=== PATIENT | female | born 1995 | race Caucasian/White ===

== ENCOUNTER 2020-07-19 18:45 | Emergency (ER) | payer OTHER ==
[2020-07-19 18:52] VITALS: TEMP 98.7
[2020-07-19] MEDS ORDERED: DIPH,PERTUS(ACELL)TETVAC-LF 0.5 ML VIAL IM ONE (19:09)
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
[2020-07-19 20:13] VITALS: BP 116/67; PULSE 70; RESP 18
== END 2020-07-19 20:27 | disposition home or self-care (01) ==
LOC: EC 18:45
DX: S01.23XA Puncture wound without foreign body of nose, initial encounter (principal); Z23 Encounter for immunization; V89.2XXA Person injured in unspecified motor-vehicle accident, traffic, initial encounter; Y92.410 Unspecified street and highway as the place of occurrence of the external cause
CPT/HCPCS: 70450; 72125; 90471; 90715; 99284

== ENCOUNTER 2020-08-20 20:21 | Emergency (ER) | payer OTHER ==
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
--- NOTE | 2020-08-20 22:44 | XR ---
EXAMINATION TYPE: XR ankle complete LT DATE OF EXAM: 08/20/2020 COMPARISON: NONE HISTORY: Ankle pain TECHNIQUE: 3 views FINDINGS: Ankle mortise is anatomic. I see no fracture nor dislocation. Joint spaces are normal. IMPRESSION: Negative left ankle exam.
[2020-08-20 23:04] VITALS: BP 131/75; PULSE 99; RESP 18; TEMP 97.9
== END 2020-08-20 23:28 | disposition home or self-care (01) ==
LOC: EC 20:21
DX: S93.402A Sprain of unspecified ligament of left ankle, initial encounter (principal); X50.1XXA Overexertion from prolonged static or awkward postures, initial encounter
CPT/HCPCS: 99283

== ENCOUNTER → 2021-02-27 | Outpatient (CLI) | payer OTHER ==
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
== END ==
LOC: SLEEP 11:44
PROVIDERS: ATTEND Internal Medicine
DX: G47.33 Obstructive sleep apnea (adult) (pediatric) (principal); E66.9 Obesity, unspecified; Z68.32 Body mass index [BMI] 32.0-32.9, adult; Z90.09 Acquired absence of other part of head and neck; Z86.19 Personal history of other infectious and parasitic diseases; Z94.5 Skin transplant status
CPT/HCPCS: 99211

== ENCOUNTER → 2021-05-06 | Outpatient (CLI) | payer OTHER ==
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
== END ==
LOC: SLEEP 13:06
PROVIDERS: ATTEND Internal Medicine
DX: R40.0 Somnolence (principal); E66.9 Obesity, unspecified; Z90.89 Acquired absence of other organs; Z94.5 Skin transplant status; Z68.32 Body mass index [BMI] 32.0-32.9, adult; Z87.828 Personal history of other (healed) physical injury and trauma